=== PATIENT | female | born 1985 | race Two or more races ===

== ENCOUNTER 2020-12-27 15:06 | Emergency (ER) | payer OTHER ==
[~2020-12-27] VITALS: Ht 172.7 cm; Wt 74.0 kg
[2020-12-27 18:57] LABS: BASOPHILS % 0.8 % (0.0-2.0); HEMOGLOBIN. 8.1 g/dL (12.0-16.0); LYMPHOCYTES % 33.7 % (20.0-50.0); MEAN CORPUSCULAR HEMOGLOBIN 17.4 pg (28.0-32.0); MEAN CORPUSCULAR VOLUME 58.2 fL (81.0-99.0); MEAN PLATELET VOLUME 8.4 fl (7.4-10.4); NEUTROPHILS % 55.5 % (40.0-76.0); PLATELET 388 x1000/uL (130-400); RED BLOOD CELL COUNT 4.64 mill/uL (4.2-5.4); RED CELL DISTRIBUTION WIDTH 21.5 % (11.6-14.6)
[2020-12-27 19:05] LABS: CHLORIDE 101 mEq/L (98-107)
[2020-12-27] MEDS ORDERED: SODIUM CHLORIDE 0.9% 500 ML IV ONE (19:30)
[2020-12-27] MEDS ORDERED: ONDANSETRON HCL 4MG/2ML INJ IV ONE (19:30)
[2020-12-27 19:37] LABS: PLATELET ESTIMATE NORMAL
[2020-12-28 03:00] VITALS: BP 107/61
== END 2020-12-28 03:00 | disposition home or self-care (01) ==
LOC: ER 15:06
DX: E86.0 Dehydration (principal); D50.9 Iron deficiency anemia, unspecified; G50.1 Atypical facial pain; M25.562 Pain in left knee; M79.602 Pain in left arm; G89.11 Acute pain due to trauma; E87.5 Hyperkalemia; R73.9 Hyperglycemia, unspecified; W01.0XXA Fall on same level from slipping, tripping and stumbling without subsequent striking against object, initial encounter; Y93.89 Activity, other specified; Y92.89 Other specified places as the place of occurrence of the external cause; R03.0 Elevated blood-pressure reading, without diagnosis of hypertension
CPT/HCPCS: 36415; 80048; 82962; 85025; 86850; 86900; 86901; 86920; 93005; 96374; 99285; J2405; J7040; P9016